=== PATIENT | male | born 1945 | race Asian ===

== ENCOUNTER 2025-04-04 10:32 | Emergency (ER) | payer MEDICAID, OTHER ==
[~2025-04-04] VITALS: Ht 165.1 cm; Wt 77.2 kg
[2025-04-04 10:59] VITALS: BP 147/69; PULSE 58; RESP 16; TEMP 97.4; O2SAT 96
[2025-04-04] MEDS: HYDROcodone-ACET 5/325MG TAB PO ONE (12:23)
--- NOTE | 2025-04-04 12:45 | DVH ---
EXAMINATION: XY L RIB X RAY INDICATION: Trauma. r/o fracture COMPARISON: None TECHNIQUE: Frontal view of the chest and < 4 >> views of the left ribs history FINDINGS/IMPRESSION: No focal consolidation, pleural effusion or significant pneumothorax. Normal cardiomediastinal silhou ette. There is a mildly displaced fracture of the left 5th rib. Correlate with point tenderness.
--- NOTE | 2025-04-04 12:50 | ED.PDOC ---
Musculoskeletal HPI Comments 79-year-old presents with the his with a chief complaint of nonradiating left rib pain x1 week. Onset occurred after patient slipped and fell on his rib stepping out of the bath tub Chief Complaint: Rib Pain Time Seen by MD: 10:57 Primary Care Provider: SILVIA Del Cid Notes: Nurses Notes, Medications, Allergies Allergies: Coded Allergies: NO KNOWN ALLERGIES (Unverified , 04/04/25) Information Source: Patient Mode of Arrival: Ambulatory Past Medical History PAST MEDICAL HISTORY: Denies Surgical History: Denies all surgeries Family History Family History: Reviewed,noncontributory to illness Social History Smoker: Non-Smoker Alcohol: Denies ETOH Use Drugs: Denies Drug Use Lives In: Home All Other Systems: Reviewed and Negative (PER HPI) Physical Exam General Appearance: No Apparent Distress, Normal HEENT: Normal ENT Inspection, Pharynx Normal, TMs Normal Neck: Full Range of Motion, Non-Tender, Normal, Normal Inspection Respiratory: Chest Non-Tender, Lungs Clear, No Accessory Muscle Use, No Respiratory Distress, Normal Breath Sounds Cardiovascular: No Edema, No JVD, No Murmur, No Gallop, Normal Peripheral Pulses, Regular Rate/Rhythm, Other (L RIB: TTP) Breast Exam: Deferred Gastrointestinal: No Organomegaly, Non Tender, No Pulsatile Mass, Normal Bowel Sounds, Soft Genitalia: Deferred Pelvic: Deferred Rectal: Deferred Extremities: No calf tenderness, Normal capillary refill, Normal inspection, Normal range of motion, Non-tender, No pedal edema Musculoskeletal : Apperance: Normal Neurologic: Alert, cattle dipper II-XII nml as Tested, No Motor Deficits, Normal Affect, Normal Mood, No Sensory Deficits Cerebellar Function: Normal Reflexes: Normal Skin: Dry, Normal Color, Warm Lymphatic: No Adenopathy Was a procedure done? Was a procedure done?: No Differential Diagnosis EXT Differential Diagnosis: Fracture, Sprain, Dislocation X-Ray, Labs, Meds, VS Vital Signs Date Time Temp Pulse Resp B/P (MAP) Pulse Ox O2 Delivery O2 Flow Rate FiO2 04/04/25 10:59 97.4 58 16 147/69 (95) 96 97.4 04/04/25 10:59 58 16 96 Room Air 04/04/25 10:33 97.4 58 16 147/69 (95) 96 97.4 Current Medications Medications (Trade) Dose Ordered Sig/Jailene Route Start Time Stop Time Status Last Admin Acetaminophen/ Hydrocodone Bitart ([place] 5/325MG Tab) 1 tab ONCE ONCE PO 04/04/25 12:15 04/04/25 12:16 DC 04/04/25 12:23 PATIENT: MAXIMUS SMITHT: [id number]: [id number] : 1945 LOC: ER ROOM / BED: / AGE / SEX: 79 / M ADM STATUS: REG ER SERVICE 1213 ORDERING PHYSICIAN: TIANA VASQUEZ NP PROCEDURE(s): LRIBS - L RIB X RAY REASON: fall. r/o fracture ORDER NUMBER(s): [id number], ACCESSION NUMBER(s): [id number] EXAMINATION: XY L RIB X RAY INDICATION: Trauma. r/o fracture COMPARISON: None TECHNIQUE: Frontal view of the chest and < 4 >> views of the left ribs history FINDINGS/IMPRESSION: No focal consolidation, pleural effusion or significant pneumothorax. Normal cardiomediastinal silhouette. There is a mildly displaced fracture of the left 5th rib. Correlate with point tenderness. ATED BY: VALDEZ CHANG MD DICTATED DATE/TIME: 04/04/25 1243 SIGNED BY: VALDEZ CHANG MD SIGNED DATE/TIME: 04/04/25 1243 CC: X-Ray, Labs, Meds, VS Comment Patient is stable for discharge at this time. Recommended [id number] Tylenol ibuprofen or Voltaren gel as needed for the pain. Use pillow has a splint when coughing External notes reviewed. Test results and diagnostic imaging interpreted. All diagnostic findings, discharge care, education and instructions provided Follow-up with PCP in 2 to 3 days Patient verbalized understanding and agreed to treatment plan Vital signs stable, afebrile, no acute distress noted Patient ambulatory with strong steady gait Advised to return precautions for any new or worsening symptoms, return to ER immediately for re-evaluation Patient is aware that the purpose of this visit was for an acute medical emergency requiring emergent stabilization. Chronic conditions, including malignancies have not been ruled out. Patient is instructed to follow up with PCP as directed and discharge instructions for continued care and workup. If unable to arrange follow-up, patient is to return to the emergency department for reassessment. Patient (parent or legal guardian if applicable) was given verbal and written discharge instructions and acknowledges understanding. Time of 1ST Reevaluation: 12:30 Reevaluation 1ST: Improved Patient Education/Counseling: Diagnosis, Treatment Family Education/Counseling: Diagnosis, Treatment Departure 1 Departure Time of Disposition: 12:49 Impression: Primary Impression: Rib fracture Qualified Codes: S22.32XA - Fracture of one rib, left side, initial encounter for closed fracture Disposition: 01 HOME / SELF CARE / HOMELESS Condition: Stable Discharged With: Spouse Critical Care Note Critical Care Time?: No Stability Stability form required: No Heart Score Heart Score: Heart Score Response (Comments) Value History N/A 0 EKG N/A 0 Age N/A 0 Risk Factors N/A 0 Troponin N/A 0 Total 0 TIANA VASQUEZ NP April 04, 2025 12:50
== END 2025-04-04 12:56 | disposition home or self-care (01) ==
LOC: ER 10:32
DX: S22.32XA Fracture of one rib, left side, initial encounter for closed fracture (principal); W01.0XXA Fall on same level from slipping, tripping and stumbling without subsequent striking against object, initial encounter; Y93.89 Activity, other specified; Y92.89 Other specified places as the place of occurrence of the external cause; Y99.8 Other external cause status
CPT/HCPCS: 71101